=== PATIENT | male | born 1975 | race Caucasian/White ===

== ENCOUNTER → 2022-04-21 11:59 | Outpatient (CLI) | payer OTHER, SELFPAY ==
--- NOTE | 2022-04-21 | DI.RAD.S_ITS ---
PROCEDURE: XR LUMBAR SPINE 2-3V INDICATIONS: RADICULOPATHY, LUMBAR REGION TECHNIQUE: 3 views of the lumbar spine were acquired. COMPARISON: None. FINDINGS: Bones: 5 [id number] vertebrae are present. There is normal bony alignment. No vertebral body compression fractures. No suspicious bony lesions. Soft tissues: Overlying bowel gas pattern is normal. No suspicious soft tissue calcifications. IMPRESSION: Lower lumbar facet arthropathy. No evidence acute bony abnormality of the lumbar spine. If clinical suspicion and/or symptoms persist, further assessment with MRI) may be helpful for further assessment. Dictated by: Colten Vergara M.D. on 04/21/2022 at 16:13 Approved by: Colten Vergara M.D. on 04/21/2022 at 16:14
== END ==
PROVIDERS: Family Provider Family Medicine; PCP Family Medicine; Referring Provider Family Medicine; Visit Provider Family Medicine
DX: M47.26 Other spondylosis with radiculopathy, lumbar region
CPT/HCPCS: 72100

== ENCOUNTER → 2022-06-06 11:30 | Outpatient (CLI) | payer OTHER, SELFPAY ==
[2022-06-06 12:38] LABS: COVID19 -Nasal RAPID Negative (Negative)
== END ==
PROVIDERS: Family Provider Family Medicine; PCP Family Medicine; Visit Provider Surgery
DX: Z20.822 Contact with and (suspected) exposure to COVID-19 (principal); Z01.812 Encounter for preprocedural laboratory examination
CPT/HCPCS: 87635; C9803

== ENCOUNTER 2022-06-07 07:58 | Day surgery (SDC) | payer OTHER, SELFPAY ==
[2022-06-07] MEDS: LACTATED RINGERS 1,000 ML 200 ML IV (08:26)
[2022-06-07 08:33] VITALS: BP 146/76; PULSE 83; RESP 18; TEMP 36.4; O2SAT 100; BMI 32.5
--- NOTE | 2022-06-07 08:48 | PM.HP.1 ---
History of Present Illness History of Present Illness Date Patient Seen: 06/07/22 Time Patient Seen: 08:48 Chief complaint: Colonoscopy Narrative: The patient presents for colorectal screening. They have never had any previous examination for such. No personal or family history of colon cancer. On further history denies any recent gastrointestinal symptoms. No nausea, vomiting, abdominal pain, loss of appetite, unexplained weight loss, change in bowel habits, diarrhea, constipation, melena, hematochezia, or bright red blood per rectum. Patient History Family & Social History Social History: household members spouse Tobacco & Substance use: Smoking Status Former smoker alcohol intake current alcohol intake frequency a few times a month Substance Use Type does not use,amphetamines Meds Home Medications and Allergies Home Medications Medication Instructions Recorded Confirmed Type dextroamphetamine-amphetamine ER 20 mg PO DAILY 06/07/22 06/07/22 History 20 mg 24hr capsule,extend release Allergies Allergy/AdvReac Type Severity Reaction Status Date / Time No Known Drug Allergies Allergy Verified 06/07/22 08:31 Exam Vital Signs (past 8 hours): - 06/07/22 08:33 Temperature 97.6 F Pulse Rate 83 Respiratory Rate 18 Blood Pressure 146/76 H Pulse Oximetry 100 Oxygen Delivery Method Room Air Oxygen Delivery Method Room Air Narrative Exam Narrative: General adult male alert oriented no acute distress Chest nonlabored respirations Abdomen soft nontender nondistended Assessment & Plan Assessment & Plan narrative: The patient requires colorectal screening and colonoscopy is recommended. Technical details were discussed. Risks, benefits, alternatives explained. Risks including but not limited to myocardial infarction, aspiration, bleeding, pain, missed lesion, incomplete examination, need for further radiographic studies, colonic perforation, and need for major abdominal surgery were discussed. All questions were answered to their satisfaction, and they are in agreement with this plan. Time Spent With Patient Critical Care time: I spent a total of [] minutes of critical care time on this patient's care today; this time is exclusive of procedural time.
[2022-06-07] MEDS: fentaNYL 100 MCG/2 ML INJ 150 MCG IV (08:52)
[2022-06-07] MEDS: MIDAZOLAM 5 MG/5 ML VIAL 6 MG IV (09:09)
--- NOTE | 2022-06-07 09:15 | PM.OP.COLON ---
Operative Date/Time/Diagnoses Date of procedure: 06/07/22 Time of procedure: 09:15 Pre-op diagnosis: Screening colonoscopy Post-op diagnosis: same Procedure & Clinicians Study performed: Colonoscopy Same procedure as scheduled: Yes Indications: Screening Surgeon: Jono Martinez Procedure Notes Procedure in detail: Medications: Conscious sedation using 6 mg IV midazolam and 150 mcg IV of fentanyl The history and physical was performed/updated and the patient is ASA class is 1. The procedure was discussed in detail with the patient. Potential risks complications including infection, bleeding, missed diagnosis, perforation, need for surgery, and were explained. Their questions were answered and informed consent was obtained. Patient was brought to the procedure room and placed standard monitoring equipment. The patient's vital signs were monitored continuously throughout the entire procedure. Prior to starting time-out was performed. The patient was placed in the left lateral recumbent position. Procedural sedation was administered. Examination began with a thorough inspection of the perianal area there was no evidence of fissures, fistulae, external hemorrhoids or cutaneous malignancy. The colonoscopy scope was then placed into the anal canal and was advanced to the cecum, which was identified by the ileocecal valve, the appendiceal orifice and the confluence of the taenia. The scope was then slowly withdrawn examining colon thoroughly in all directions, irrigating it of any residual stool. FINDINGS 1. No masses polyps 2. Mild sigmoid diverticulosis The patient tolerated the procedure well. They will be discharged once criteria are met. The prep was of good/excellent quality. The withdrawl time was 6 minutes. The sedation time was 25 minutes. Specimen(s): none sent Complications: none Impression: Normal colonoscopy Post-procedure Recommendations: Colonoscopy in 10 years and High fiber diet Disposition: same day surgery
[2022-06-07 09:17] VITALS: BP 134/49; PULSE 79; RESP 14; TEMP 37.2; O2SAT 98
[2022-06-07 09:22] VITALS: BP 139/70; PULSE 71; RESP 17; O2SAT 97
[2022-06-07 09:27] VITALS: BP 129/79; PULSE 74; RESP 16; O2SAT 98
[2022-06-07 09:33] VITALS: BP 122/78; PULSE 72; RESP 16; TEMP 37; O2SAT 98
[2022-06-07 10:28] VITALS: BMI 32.5
== END 2022-06-07 09:50 | disposition home or self-care (01) ==
PROVIDERS: Family Provider Family Medicine; PCP Family Medicine; Referring Provider Surgery; Visit Provider Surgery
PROC: 0DJD8ZZ Inspection of Lower Intestinal Tract, Via Natural or Artificial Opening Endoscopic (ICD-10-PCS; CPT 45378; principal; 2022-06-07 09:15)
DX: Z12.11 Encounter for screening for malignant neoplasm of colon (principal); K57.30 Diverticulosis of large intestine without perforation or abscess without bleeding
CPT/HCPCS: 45378; 36415; 99152; 99153; J2250; J3010